=== PATIENT | male | born 1970 | race Caucasian/White ===

== ENCOUNTER 2025-08-15 16:08 | Emergency (ER) | payer OTHER, SELFPAY ==
[2025-08-15 16:22] VITALS: BP 146/87; PULSE 80; RESP 18; TEMP 36.4; O2SAT 99
--- NOTE | 2025-08-15 16:52 | ED.SKABFB ---
HPI - Skin/Abscess/Foreign Bdy General Chief complaint: Skin/Abscess/Foreign Body Stated complaint: bump L side of face Time Seen by Provider: 08/15/25 16:45 Source: patient, RN notes reviewed and old records reviewed Mode of arrival: ambulatory Limitations: no limitations History of Present Illness HPI narrative: 54 year old male who presents to [facility] care with complaints of raised tissue area to left side of face upper outer cheek that he noted on Thursday. He states that he wore a wig for [employer] party and thought maybe it was hives or some allergic response. Patient reports that he tried to pop area and clear drainage came out yesterday. Patient reports that area is slightly tender minimal swelling noted no orbital cellulitis. MD complaint: other (raised tissue area) Onset (ago): day(s) (3 days) Location: face (left upper cheek area) Severity: mild Treatments prior to arrival: other (attempted to drain clear fluid) Related Data Home Medications ?Medication ?Instructions ?Recorded ?Confirmed ?Last Taken ?Type pantoprazole 40 mg tablet,delayed mg PO 08/15/25 Unknown History release Allergies Allergy/AdvReac Type Severity Reaction Status Date / Time No Known Allergies Allergy Verified 08/15/25 16:23 Review of Systems Review of Systems: CONSTITUTIONAL: Denies fever, chills, or sweats. CARDIOVASCULAR: Denies chest pain, palpitations, or edema. RESPIRATORY: Denies cough or dyspnea. SKIN: Reports raised area to left upper cheek with mild tenderness of area, no warmth or acute redness no pustules or vesicles noted, denies any burning or itching of area MUSCULOSKELETAL: Denies joint pain or myalgia. NEUROLOGIC: Denies headache, numbness, or weakness. All systems reviewed & are unremarkable except as noted in HPI and below [facility] Past Medical History Medical History (Updated 08/16/25 @ 16:55 by Glendy Storey APRN) GERD (gastroesophageal reflux disease) Social History Social History (Updated 08/16/25 @ 16:49 by Glendy Storey APRN) Alcohol intake: current Alcohol use details: social Substance use: never Living arrangements: with family Gender identity (if verbalized by the patient): Male Comments At time of signature, agree with nursing past medical, surgical, social and family history. There is no relevant family history pertinent to the presenting complaint Exam Narrative: GENERAL: Well-appearing, well-nourished, and in no acute distress. HEAD: Normocephalic, atraumatic. EYES: PERRLA, conjunctivae clear, and EOMI. ENT: Mucous membranes moist. Oropharynx without edema, erythema or lesions. NECK: Supple. No lymphadenopathy CHEST: Clear to auscultation. No respiratory distress. HEART: Regular rate and rhythm. SKIN: Warm, dry.?Raised lesion area to left upper outer cheek, no acute redness or warmth, measures 2.5 cm X1cm with no vesicles or pustules noted, no drainage or fluctuation of tissue, denies any acute pain or itching NEURO? Alert and oriented x3. PSYCH: Normal mood and affect Course Course Emergency Course: Patient is aware of diagnosis, understands and agrees to treatment plan.? Anticipatory guidance given.? Patient agrees to follow-up as directed and is aware of reasons to seek care at the emergency department. Portions of this record may have been created with voice recognition software Level of Care: Express Care Visit Vital Signs Vital signs: Vital Signs Temperature 36.4 C 08/15/25 16:22 Pulse Rate 80 08/15/25 16:22 Respiratory Rate 18 08/15/25 16:22 Blood Pressure 146/87 H 08/15/25 16:22 Pulse Oximetry 99 08/15/25 16:22 Oxygen Delivery Room Air 08/15/25 16:22 Temperature 36.4 C 08/15/25 16:22 Pulse Rate 80 08/15/25 16:22 Respiratory Rate 18 08/15/25 16:22 Blood Pressure 146/87 H 08/15/25 16:22 Pulse Oximetry 99 08/15/25 16:22 Oxygen Delivery Room Air 08/15/25 16:22 Reviewed MDM - Skin/Abscess/Foreign Bdy MDM Narrative Medical decision making narrative: Does not appear at this time to be erythema multiforme, bullous, SJS, TEN; no evidence at this time to suggest RMSF, endocarditis or Lyme disease; patient looks well, nontoxic and is tolerating oral intake; no neurologic signs or symptoms; no headache, photophobia or neck pain; afebrile; appropriate for initial outpatient treatment; discussed the importance of follow-up, patient agrees; question, viral exanthema, contact dermatitis, allergic dermatitis, eczema, urticaria. No soft palate or uvula edema, no tongue, lip edema or other mucosal involvement, no respiratory compromise, no stridor, no wheezing, no wheezing, no history of syncope, no hypotension, no nausea, vomiting, or diarrhea.? Instructed patient to go to nearest ER immediately for any worsening symptoms including but not limited to: fever, spreading rash, pain, sore throat, headache, dizziness, chest pain, trouble breathing, or any symptoms concerning to the patient. Differential Diagnosis Differential diagnosis: Likely abscess of skin or subcutaneous tissue, cellulitis and contact dermatitis Medical Records Attestation: I reviewed the patient's medical records. Critical Care Time Critical Care Time Critical Care Time: No Discharge Plan Discharge Clinical Impression: Contact dermatitis Qualifiers: Contact dermatitis type: unspecified Contact dermatitis trigger: unspecified trigger Qualified Code(s): L25.9 - Unspecified contact dermatitis, unspecified cause Patient Disposition: Home Condition: Stable Instructions: Antibiotic Form, Contact Dermatitis (ED) Additional Instructions: apply mupirocin ointment to rash/ raised tissue area twice daily watch for any infection--redness, swelling, drainage, fever Tylenol or ibuprofen for any fever or pain follow up with PCP in 7-10 days for a wound check recheck if develop fever, chills, increasing symptom Go to the ER if your symptoms become worse of if ANY new symptoms develop If your symptoms persist, change or worsen significantly before you can contact your personal physician then please, without delay, go to the emergency department for further evaluation. Follow-up with PCP in 7-10 days or sooner if needed Follow up with PCP soon in regards to your blood pressure which is elevated above threshold for referral. Blood pressure above 120/80 may indicate pre-hypertension. 146/87 Antibiotic as prescribed Patient Language: Maltese Prescriptions: New mupirocin [Centany] 2 % ointment 1 applic topical BID Qty: 15 0RF cephalexin 500 mg capsule 500 mg PO Q12H Qty: 14 0RF No Action pantoprazole 40 mg tablet,delayed release (DR/EC) PO Follow-up/Referrals: UNKNOWN,DOCTOR [Primary Care Provider] Time of Disposition: 16:59 Quality Rossy Coma Scale Eyes: Open Verbal: Oriented and Alert Motor: Follows Commands Rossy Coma Total Score: 15
--- OUTSIDE RECORDS SUMMARY | 2025-08-15 16:55 | XMS_ITS | Encounter Summary ---
Author Organization [facility] Healthcare Address [address] [place] [address] Care Team Providers Care Documentation Engineer Name Role Phone Reyna Stephenson Primary Care Provider [phone] Encounter Details Date Type Department Care Team (Late st Contact Info) Description 07/30/2020 Telephone [facility] [address] [address], [address] [place] [id number] Varghese Grimaldo MD [address] [address] Social History Tobacco Use Types Packs/Day Years Used Date Smoking Tobacco: Former Cigarettes Smokeless Tobacco: Never Alcohol Use Standard Drinks/Week Comments Yes 12 (1 standard drink = 0.6 oz pu re alcohol) Sex and Gender Information Value Date Recorded Sex Assigned at Not on file Legal Sex Male 8:56 AM DATASTAGE ARCHITECT Gender Identity Not on file Sexual Orientation Not on file 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 Not on file Not on file Not on file documented as of this encounter Plan of Treatment Not on file documented as of this encounter Visit Diagnoses Not on filedocumented in this encounter Additional Health Concerns Infection Onset Date Last Indicated Resolved Time COVID: Suspected 10/01/2023 10/01/2023 10/01/2023 6:39 PM DATASTAGE ARCHITECT COVID19 10/01/2023 10/01/2023 10/11/2023 3:05 AM DATASTAGE ARCHITECT documented as of this encounter Care Teams Documentation Engineer Relationship Specialty Start Date End Date Reyna Stephenson PA [address] [id number] PCP - General Reel Stripper 07/16/20 documented as of this encounter
--- OUTSIDE RECORDS SUMMARY | 2025-08-15 16:55 | XMS_ITS | Clinical Summary ---
Author Organization [facility] Address [address] [facility], [address] [address] Phone Care Team Providers Care Oil Distributor Name Role Phone Reyna Stephenson Primary Care Provider + Fausto Cai MD Unavailable [phone] Remigio Goodwin MD Unavailable [phone] Allergies Active Allergy Reactions Criticality Noted Date Comments Other Runny Nose Low 11/12/2018 Seasonal allergies Pollen Extract Runny Nose Low 07/30/2020 Medications Cetirizine HCl (ZYRTEC PO) Take by mouth. Active IBUPROFEN PO Take by mouth. Active Diclofenac Sodium (VOLTAREN) 1 % GelIndications:C hronic pain of left knee Apply 4 g 4 times daily. 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 Vocal cord dysfunction 03/18/2017 Persistent hypersomnia 03/18/2017 Snoring 03/18/2017 PLMD (periodic limb movement disorder) 7 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 Family history of pulmonary embolism 11/07/2016 Encounters Date Type Department Care Team Description 06/15/2025 [facility] [address] [place] [address] Reyna Stephenson, PAC Medication Refill 05/25/2025 [facility] [address] [place] [address] Reyna Stephenson, PAC Medication Refill from Last 3 Months Family History Medical History Relation Name Comments Clotting Disorder Brother Keenan everett FACTOR 5 L IEDEN, FROM PE Hypertension Brother Keenan everett Obstructive Sleep Apnea Brother Keenan everett SLEE P APNEA No Known Problems Daughter 1 No Known Problems Daughter 2 Cancer Father Father prostate Diabetes Father Father Hypertension Father Father Prostate Cancer Father Father Cancer Maternal Grandfather Markell jarrod Prostate Cancer Maternal Grandfather Markell jarrod No Known Problems Maternal Grandmother Anxiety disorder Mother Gout Mother Cancer Paternal Grandfather Cleve everett Prostate Cancer Paternal Grandfather Cleve everett No Known Problems Paternal Grandmother Clotting Disorder Sister Factor V L eiden Relation Name Status Comments Brother Keenan everett Daughter 1 Alive Daughter 2 Alive Father Father Alive Maternal Grandfather Markell garay Maternal Grandmother Mother Alive Paternal Grandfather Cleve everett Paternal Grandmother Sister Alive Social History Tobacco Use Types Packs/Day Years Used Date Smoking Tobacco: Former Cigarettes 0.3 15 Smokeless Tobacco: Former Chew Quit: 03/09/2017 Tobacco Cessation:Counseling Given: No Comments:PACK OF CIGARETTES PER WK, Patient has been using chewing tobacco for 7 years Alcohol Use Standard Drinks/Week Comments Yes 24 (1 standard drink = 0.6 oz pu re alcohol) beer [facility] Utilities Answer Date Recorded In the past 12 months has [facility] [employer], gas, oil, or water [employer] threatened to shut off services in your home? No 04/28/2024 Social Connection and Isolation Panel Answer Date Recorded In a typical week, how many times do you talk on the phone with family, friends, or neighbors? More than three times a week 04/28/2024 How often do you get togethe r with friends or relatives? Once a week 04/28/2024 How often do you attend chur ch or presybeterian services? More than 4 times per year 04/28/2024 Do you belong to any clubs o r organizations such as denominational groups, unions, fraternal or athletic groups, or school groups? Yes 04/28/2024 How often do you attend meet ings of the clubs or organizations you belong to? More than 4 times per year 04/28/2024 Are you , , di vorced, , never , or living with a partner? 04/28/2024 AUDIT-C Answer Date Recorded Q1: How often do you have a drink containing alc ohol? 2-4 times a month 04/28/2024 Q2: How many drinks containi ng alcohol do you have on a typical day when you are drinking? Patient declined 04/28/2024 Q3: How often do you have si x or more drinks on one occasion? Weekly 04/28/2024 Overall Financial Resource Strain (CARDIA) Answe r Date Recorded How hard is it for you to pa y for the very basics like food, housing, medical care, and heating? Patient declined 04/28/2024 PHQ-2 Answer Date Recorded Total Score - Questions 1-9 0 06/[address] [facility]ational Stress Questionnaire Answer Date Recorded Do you feel stress - tense, restless, nervous, or anxious, or unable to sleep at night because your mind is troubled all the time - these days? To some extent 04/28/2024 Exercise Vital Sign Answer Date Recorde d On average, how many days pe r week do you engage in moderate to strenuous exercise (like a brisk walk)? 3 days 04/28/2024 On average, how many minutes do you engage in exercise at this level? 50 min 04/28/2024 Hunger Vital Sign Answer Date Recorded Within the past 12 months, y ou worried that your food would run out before you got the money to buy more. Never true 04/28/20 24 Within the past 12 months, t he food you bought just didn't last and you didn't have money to get more. Never true 04/28/2024 PRAPARE - Transportation Answer Date Re corded In the past 12 months, has l ack of transportation kept you from medical appointments or from getting medications? No 04/11 In the past 12 months, has l ack of transportation kept you from meetings, work, or from getting things needed for daily living? No 04/28/2024 Housing Stability Vital Sign Answer Gorge e Recorded In the last 12 months, was t here a time when you were not able to pay the mortgage or rent on time? No 04/28/2024 Number of Times Moved in the Last Year Not on fi le 04/28/2024 At any time in the past 12 m [facility], were you homeless or living in a long term (including now)? No 04/28/2024 Education Answer Date Recorded What is the highest level of school you have completed or the highest degree you have received? 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 Not on file Not on file Last Filed Vital Signs Vital Sign Reading Time Taken Comments Blood Pressure 132/80 04/29/2024 1:06 PM CDT Pulse 78 04/29/2024 1:06 PM CDT Temperature 37.1 C (98.8 F) 04/29/2024 1:06 PM CDT Respiratory Rate 16 04/29/2024 1:06 PM CDT Oxygen Saturation 98% 04/29/2024 1:06 PM CDT Inhaled Oxygen Concentration - - Weight 100 kg (220 lb 8 oz) 04/29/2024 1:06 PM C DT Height 188 cm (6' 2) 04/29/2024 1:06 PM CDT Body Mass Index 28.31 04/29/2024 1:06 PM CDT Plan of Treatment Upcoming Encounters Date Type Department Care Team (Late st Contact Info) Description 10/10/2025 3:20 PM BILLPOSTER Office Visit [facility] [address] [place] [address] Reyna Stephenson, JANA [address] [facility] [address] Health Maintenance Due Date Last Done Comments TdaP Immunization 1971 Cologuard 2016 Immunochemical Fecal Occult Blood 2016 Pneumococcal Immunization (5 0+ years) (1 of 1 - PCV) 2021 Zoster Immunization (1 of 2) 2021 Influenza Immunization (#1) 2025 SARS-COV-2 Immunization (1 - season) 2025 Colonoscopy 01/24/2029 01/24/2019 Colorectal Cancer Screening 01/24/2029 Respiratory Syncytial Virus (RSV) Immunization (Adult) (1 - 1-dose 75+ series) 2046 Hepatitis B Immunization Discontinued Hepatitis C Virus (HCV) Screening Discontinued Human Papillomavirus (HPV) Immunization Aged Out No longer eligible b ased on patient's age to complete this topic Meningococcal Immunization (ACWY) Aged Out No longer eligible based on patient's age to complete this topic Rotavirus Immunization Aged Out No lo nger eligible based on patient's age to complete this topic Insurance [facility] Advance Directives Documents on File Type Date Recorded Patient Paving Bed Maker Expl anation Other Advance Directive 07/21/2022 11:35 AM IPSS Care Teams Oil Distributor Relationship Specialty Start Date End Date Reyna Stephenson PAC [address] [place] [address] PCP - General Physician Chromium Plater 10/20/17 Fausto Cai MD [address] [address] Consulting Physician Urology 07/17/22 Remigio Goodwin MD [address] [address] Consulting Physician General Surgery 08/05/22
--- OUTSIDE RECORDS SUMMARY | 2025-08-15 16:55 | XMS_ITS | Clinical Summary ---
Author Organization [facility] [address] Address [address] [place] [address] Care Team Providers Care Special Education Teacher Name Role Phone Reyna Stephenson Primary Care Provider [phone] Allergies Active Allergy Reactions Criticality Noted Date Comments Pollen Extracts Rhinitis Low 07/30/2020 Medications cetirizine (ZyrTEC) 10 mg tablet Take by mouth daily as needed Active acetaminophen (TYLENOL) 500 mg tablet Take 1 tablet (500 mg total) by mouth every 4 (four) hours as needed Active pantoprazole DR (PROTONIX) 40 mg EC tablet TK 1 T PO QAM 30 MIN B KATHLEEN 3 02/02/2019 Active loteprednol (LOTEMAX) 0.5 % ophthalmic suspension 1 drop 09/23/2018 Active famotidine (PEPCID) 40 mg tablet TK 1/2 T PO BID 06/07/2020 Active ibuprofen (ADVIL,MOTRIN) 800 mg tablet Take 1 tablet (800 mg total) by mouth every 8 (eight) hours as needed 04/05/2020 Active econazole 1 % cream APPLY TO FEET AND HANDS TWICE DAILY 06/22/2021 Active Active Problems Problem Noted Date Diagnosed Date LILY (obstructive sleep apnea) 05/18/2017 DNS (deviated nasal septum) 03/18/2017 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 Laryngopharyngeal reflux 03/18/2017 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 Persistent hypersomnia 03/18/2017 PLMD (periodic limb movement disorder) 7 PNAR (perennial non-allergic rhinitis) 7 Snoring 03/18/2017 Vocal cord dysfunction 03/18/2017 Disorder of tongue 02/17/2017 Overview (03/06/2017): Tongue irritation Family history of pulmonary embolism 11/07/2016 Surgical History Surgery Date Site/Laterality Comments APPENDECTOMY CATARACT EXTRACTION Medical History Medical History Date Comments GERD (gastroesophageal reflux disease) Sleep apnea Family History Medical History Relation Name Comments Diabetes Other Family history of Diabetes mellitus; Cancer Paternal Grandfather Relation Name Status Comments Father Alive Mother Alive Other Paternal Grandfather Social History Tobacco Use Types Packs/Day Years Used Date Smoking Tobacco: Former Cigarettes Smokeless Tobacco: Never Alcohol Use Standard Drinks/Week Comments Yes 12 (1 standard drink = 0.6 oz pu re alcohol) AUDIT-C Answer Date Recorded Q1: How often do you have a drink containing alc ohol? 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 Not on file Not on file Last Filed Vital Signs Vital Sign Reading Time Taken Comments Blood Pressure 96/64 10/01/2023 6:27 PM BUSINESS ANALYTICS DIRECTOR Pulse 118 10/01/2023 6:27 PM BUSINESS ANALYTICS DIRECTOR Temperature 37.3 C (99.1 F) 10/01/2023 6:27 PM BUSINESS ANALYTICS DIRECTOR Respiratory Rate 18 10/01/2023 6:27 PM BUSINESS ANALYTICS DIRECTOR Oxygen Saturation 96% 10/01/2023 6:27 PM BUSINESS ANALYTICS DIRECTOR Inhaled Oxygen Concentration - - Weight 96.2 kg (212 lb) 10/01/2023 6:27 PM BUSINESS ANALYTICS DIRECTOR Height 188 cm (6' 2) 10/01/2023 6:27 PM BUSINESS ANALYTICS DIRECTOR Body Mass Index 27.22 10/01/2023 6:27 PM BUSINESS ANALYTICS DIRECTOR Plan of Treatment Health Maintenance Due Date Last Done Comments Colon Cancer Screening-Colonoscopy 1971 Depression Screening 1971 Hepatitis C Screening 1971 Prostate Cancer Screening-PSA 1971 DTaP/Tdap/Td Vaccine (1 - Tdap) 1982 Hepatitis B Screening 1989 Regular Well Visit/Exam 18-64 1989 Zoster Vaccine (1 of 2) 2021 Influenza Vaccine (#1) 2025 Pneumococcal vaccine <65 Aged Out No longer eligible based on patient's age to complete this topic Goals Goal Patient Goal Type Associated Problems Recent Progress Patient-Stated? Author CCM Chronic Pain Care Plan Chronic Care Management No Day [place] APRN Note: Problem: Chronic Pain Goals: 1. Minimize further functional decline 2. Maximize quality of life 3. Control pain Strategies: - Activity/exercise program recommendation - Conservative stepwise pain medicine strategy with multi-disciplinary approach - Recommend healthy lifestyle strategies and compensatory methods as needed [facility] [id number] [facility] CMR Care Teams Special Education Teacher Relationship Specialty Start Date End Date Reyna Stephenson PA [address] [address] PCP - General Code Official 07/16/20
== END 2025-08-15 17:07 | disposition home or self-care (01) ==
PROVIDERS: Emergency Provider Registered Nurse
DX: L25.9 Unspecified contact dermatitis, unspecified cause (principal)
CPT/HCPCS: 99213; G0463